=== PATIENT | female | born 1965 | race Caucasian/White ===

== ENCOUNTER 2017-06-19 09:37 | Outpatient (CLI) | payer OTHER ==
--- NOTE | 2017-06-28 21:40 | EKG ---
Test Reason : Blood Pressure : / mmHG Vent. Rate : 062 BPM Atrial Rate : 062 BPM P-R Int : 132 ms QRS Dur : 092 ms QT Int : 432 ms P-R-T Axes : 033 039 001 degrees QTc Int : 438 ms Normal sinus rhythm Normal ECG No previous ECGs available Confirmed by CHRISTIANO JOHNSON (2) on 06/28/2017 9:40:34 PM Referred By: VINCE Confirmed By:CHRISTIANO JOHNSON
== END 2017-06-19 09:38 | disposition home or self-care (01) ==
LOC: LABBT 09:37
PROVIDERS: ATTEND Specialist
DX: Z01.818 Encounter for other preprocedural examination (principal); K80.00 Calculus of gallbladder with acute cholecystitis without obstruction
CPT/HCPCS: 93005; 93010

== ENCOUNTER 2017-10-03 15:24 | Outpatient (CLI) | payer OTHER | END 2017-10-03 15:25 | disposition home or self-care (01) | LOC: DTY/OP 15:24 | PROVIDERS: ATTEND Specialist | DX: Z01.818 Encounter for other preprocedural examination (principal); E66.01 Morbid (severe) obesity due to excess calories | CPT/HCPCS: 97802 ==

== ENCOUNTER 2017-11-06 16:30 | Inpatient (IN) | payer OTHER ==
--- NOTE | 2017-11-06 11:07 | HP ---
HISTORY OF PRESENT ILLNESS: Shonda Scott is a 52-year-old female who I saw in June 2017 for symptomatic gallstones, undergoing laparoscopic video cholecystectomy and adjustable band port, a djustment volume check of 2 mL, aspirated 0.5 to 3-4 mL, leaving 1-1.5 mL. She had intolerable reflu x at that time. Patient has since decided to have her adjustable band removed and proceed with lapar oscopic sleeve gastrectomy. She understands the risks of infection, bleeding, visceral injury, conve rsion to open procedure, risk of leakage, bleeding, reoperation and consents. Last colonoscopy was i n 2009. She is a retired [employer]. She has attended our seminar, seen our psychologist a nd is felt to be a good candidate. She has seen our dietitian regarded perioperative changes stage a fter conversion from a laparoscopic adjustable band to a sleeve. Patient lives in [place]. Her prim van buren care physician is Dr. Amaury Yates. She had her adjustable band placed in [place] in 2006. She weighed 240 pounds prior to band placemen ; when I saw her for gallbladder problems, she was 201 pounds; and on visit today in the office, she was 216 pounds, 39 BMI. ALLERGIES: LEVAQUIN. SOCIAL HISTORY: Tobacco: None. Alcohol: None. The patient is . She is retired. PAST SURGICAL HISTORY: Laparoscopic adjustable band in 2006, hysterectomy in 2006, bilateral salping o-oophorectomy, ear surgery in 1970 and 2016, bladder suspension, laparoscopic band by Dr. 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 Melanoma excision in 2001, bladder suspension in 2009. REVIEW OF SYSTEMS: [place] noncontributory. The patient has seen Dr. Rowley and felt to be a good candidate for bariatric surgery. Preoperative l aboratories have been obtained and are in good alignment with iron slightly low at 29 (50-170 normal) , cholesterol 214 (desirable less than 200), triglycerides 85, thyroid function test is normal. Obdulia min D low at 14, normal should be greater than 30 and she is undergoing replacement. H. pylori is ne gative. Vitamin B1 normal at 74. Folate is slightly low at 5.9, normal 7-31. Vitamin B 12 of 493. COMORBIDITIES: Hypertension, gastroesophageal reflux disease related to her band resolved after band adjustment. PHYSICAL EXAMINATION: VITAL SIGNS: Height 5 feet 2 inches, 216 pounds, 39 BMI. [place] body weight 125. Blood pressure 137 /61, pulse 81, 98.8 degrees. HEENT: Unremarkable. LUNGS: Clear to auscultation. CARDIAC: Regular rate and rhythm without murmur or gallop. ABDOMEN: Soft, obese, nontender. Band port in place. EXTREMITIES: Unremarkable. ASSESSMENT AND PLAN: Morbid obesity, comorbidities of hypertension and reflux related to her band re solving after band adjustment. She did not have reflux prior to placement of the band. She understa nds the risks and benefits as outlined above and consents.
[2017-11-08] MEDS ORDERED: Heparin 5,000 UNITS/ML VIAL ONE (06:14)
[2017-11-08] MEDS ORDERED: Ketorolac Tromethamine 30 MG/ML VIAL ONE ×2 (06:14→13:19)
[2017-11-08] MEDS ORDERED: Scopolamine 1.5 mg/72 hour Patch ONE (06:14)
[2017-11-08] MEDS ORDERED: cefOXitin 2 GM in Sodium Chloride 0.9% 100 ML IVPB SCH (06:30)
[2017-11-08] MEDS ORDERED: Bupivacaine HCl 0.5%/Epinephrine 1:200,000/PF 30 ml Vial ONE (06:43)
[2017-11-08] MEDS ORDERED: Promethazine HCl 25 MG/ML VIAL ONE (07:19)
[2017-11-08] MEDS ORDERED: Midazolam HCl 2 mg/2 ml Vial ONE (07:19)
[2017-11-08] MEDS ORDERED: Fentanyl 250 MCG/5 ML VIAL ONE (07:19)
[2017-11-08] MEDS ORDERED: Bupivacaine/Epinephrine 0.25% 30 ML VIAL ONE (07:42)
--- NOTE | 2017-11-08 09:17 | ADD-HP ---
ADDENDUM HISTORY OF PRESENT ILLNESS: Ms. Shonda Scott is a 52-year-old female initially seen on 10/03, presented initially on 06/13/2017 for symptomatic gallbladder disease with a history of placem ent of laparoscopic adjustable gastric band. The patient is followed by Dr. Amaury Yates. The baljit ent underwent laparoscopic cholecystectomy in 05/2017 for symptomatic gallstones. She subsequently a ttended our bariatric seminar. She desires to have her laparoscopic adjustable band removed and proc eed with laparoscopic sleeve gastrectomy. She has attended our bariatric seminar, met with our dieti jimena and seen by our psychologist and thought to be a good candidate for further bariatric surgery. The patient is retired [employer]. She has committed perioperative followup and diligent fo od choices to ensure good results. She did not have problems with reflux prior to placement of her b and and since deflation of her band, her reflux symptoms have resolved. Initially she was seen, 216 pounds, 39 BMI and today she is 215 pounds, 39 BMI, 5 foot 2 inches. COMORBIDITIES: Hypertension, reflux related to her band, resolved after band deflation. TOBACCO: None. ALCOHOL: None. SOCIAL HISTORY: Patient is . She is retired. ALLERGIES: LEVAQUIN. She had her band placed in [place] in 2006, weighing 240 pounds prior to band placement. When I saw her for gallbladder problems, she was 201 pounds on visit date and previous visit in office in October, she was 216 pounds, 39 BMI. She has seen Dr. Rowley, psychologist and felt to be a good candidate. LABORATORY DATA: Preoperative labs reveal a slightly low iron, cholesterol 214, triglycerides 85. T hyroid function tests are normal. Vitamin D low at 14. She has been on vitamin D replacement protoc . H. pylori was negative. PHYSICAL EXAMINATION: GENERAL: 215 pounds, 136/65, 62 heart rate, 99 degrees, 39 BMI. [place] body weight 125 pounds. HEENT: Unremarkable. NEUROLOGIC: Intact. EXTREMITIES: No ankle edema, no venous stasis changes. LUNGS: Clear to auscultation. CARDIAC: Regular rate and rhythm without murmur or gallop. ABDOMEN: Soft, obese, nontender. Band in place. ASSESSMENT AND PLAN: Morbid obesity, unsuccessful weight loss for laparoscopic adjustable band, mahendra res conversion to sleeve gastrectomy. Plan is to removal of the band and conversion to sleeve gastre ctomy. Risk of infection, bleeding, reoperation, leakage, readmission open operation was discussed. Questions answered.
[2017-11-08] MEDS ORDERED: PHENYLEPHRINE-NS 100 MCG/ML 10 ML SYRINGE ONE ×3 (09:37→11:20)
[2017-11-08] MEDS ORDERED: SUGAMMADEX SODIUM 200 MG/2 ML VIAL ONE (09:58)
[2017-11-08] MEDS ORDERED: Ondansetron HCl/PF 4 MG/2 ML Vial IVP PRN ×2 (10:59→11:17)
[2017-11-08] MEDS ORDERED: Morphine 4 MG/ML VIAL SLOW IVP PRN ×2 (10:59)
[2017-11-08] MEDS ORDERED: diphenhydrAMINE 50 MG/ML VIAL IVP PRN (10:59)
[2017-11-08] MEDS ORDERED: Dextrose 50% Abboject 50 ML SYRINGE SLOW IVP PRN (10:59)
[2017-11-08] MEDS ORDERED: hydrALAZINE 20 MG/ML VIAL SLOW IVP PRN (10:59)
[2017-11-08] MEDS ORDERED: Hydrocodone-Acetamin 15 ML UDCUP PO PRN (10:59)
[2017-11-08] MEDS ORDERED: Dextrose 5% in Water 1,000 ML IV PRN (10:59)
[2017-11-08] MEDS ORDERED: Morphine Sulfate 2 MG/ML SYRINGE SLOW IVP PRN (11:17)
[2017-11-08] MEDS ORDERED: Promethazine HCl 25 MG/ML VIAL SLOW IVP PRN (11:17)
[2017-11-08] MEDS ORDERED: Ondansetron HCl/PF 4 MG/2 ML Vial ONE (11:20)
[2017-11-08] MEDS ORDERED: Dexamethasone 20 MG/5 ML VIAL ONE (11:20)
[2017-11-08] MEDS ORDERED: ePHEDrine/0.9% NaCl/PF SYRINGE 50 mg/10 ml ONE (11:20)
[2017-11-08] MEDS ORDERED: Calcium Chloride 1 GM/10 ML Abboject SYRINGE ONE (11:20)
[2017-11-08] MEDS ORDERED: Lidocaine 1% PF 5 ML VIAL ONE (11:20)
[2017-11-08] MEDS ORDERED: Glycopyrrolate 0.2 MG/ML 5 ML SYRINGE ONE (11:20)
[2017-11-08] MEDS ORDERED: PROPOFOL 200 MG/20 ML VIAL ONE (11:20)
[2017-11-08] MEDS ORDERED: Fentanyl 100 MCG/2 ML VIAL ONE (11:42)
--- NOTE | 2017-11-08 15:06 | OP ---
DATE OF PROCEDURE: 11/08/2017 PREOPERATIVE DIAGNOSES: 1. Unsuccessful, undesired laparoscopic adjustable band. 2. Postop morbid obesity, 5 foot 2 inches, 216 pounds, 39 BMI. 3. Elevated cholesterol. 4. Hypertension. POSTOPERATIVE DIAGNOSES: 1. Unsuccessful, undesired laparoscopic adjustable band. 2. Postop morbid obesity, 5 foot 2 inches, 216 pounds, 39 BMI. 3. Elevated cholesterol. 4. Hypertension. 5. Hiatal hernia. PROCEDURE: Laparoscopic removal of laparoscopic adjustable band and port. Laparoscopic hiatal herni a repair, laparoscopic sleeve gastrectomy using a 36 Mozamb[place] bougie, staple line within 4 cm of pyloru s, completion upper endoscopy, no evidence of leak. PROCEDURE: The patient taken to the operating room where under general anesthesia in supine position , her abdomen was prepared with ChloraPrep, draped in routine fashion. Local anesthetic 0.5% Marcain e with epinephrine 60 mL mixed with 2% Xylocaine, 20 mL mixture used. Local anesthetic infiltrated i nto skin and subcutaneous tissue about each port site. Supraumbilical incision made. Pneumoperitone um to 15 obtained. A Veress needle placed with a 5 port and laparoscope inserted. Mozambican port place d under laparoscopic visualization. Bilateral far lateral subcostal incision made and a [address] Bilateral midclavicular upper abdominal incisions made and a 15 port placed on the patient's left and a 12 port on the right. Subxiphoid incision made and the left lobe of the liver taken down. Ad hesions taken down from between the left lobe of the liver, stomach and band, Nathansen liver retract or inserted, reflecting the left lower lid of liver anteriorly. The band was dissected free from its capsule and then the lock reduced and it was removed. Further dissection of the folds of the stomac h were taken down with LigaSure and cold scissors. Hemostasis gained with cautery, LigaSure and clip s. Fundus stomach was mobilized as much as possible carefully. It was folded back posteriorly and c areful dissection required. At this point, a 36 [place]amb[place] bougie taken down and reduced down towards th e pylorus along the lesser curvature, laparoscopically evaluated. Serial fires of gold Endo stapler performed creating a sleeve gastrectomy up towards the fundus, thus stapling was interrupted as the f undus was still folded back posteriorly. Careful dissection of the right crura performed in the left crura performed and the posterior window identified a small hiatal hernia. Fundus reduced from this hiatal hernia into the abdominal cavity and posterior crura approximated with 2 interrupted sutures of 0 Bralon suture using the tie knot. Once this was completed, the crura approximation was very loo se around the esophagus which as mentioned before a [address] Good hemostasis obtained with clips and LigaSure. Once this was confirmed, and the fundus adequately mobilized, completion s leeve gastrectomy performed with gold fires and then blue fires completing the sleeve gastrectomy and removing the stomach from the 15 mm port site left upper quadrant. Staple line hemostasis gained wi th cautery. At this point, the band port was removed along with the remaining tubing which had been transected early on to allow removal of the band. This port was removed and discarded. 0 Vicryl Gra Nee needle used to approximate this deep incision site. Once this was placed, a15 port was replaced and then I returned to the upper head of the table where the endoscope placed per os under direct vis ualization and passed out the esophagus, stomach, visualizing the pylorus, noting the staple li ne to be intact without bleeding. The stomach decompressed. There was no leakage under water testin g. Scope withdrawn decompressing the stomach and esophagus removing it. There were some small polyp s in the stomach. These polyps appeared to be inflammatory. The patient tolerated the procedure wel l. As the scope was removed, good hemostasis was ensured and I turned my attention back to the opera tive field with a new gown and gloves. Abdominal cavity irrigated and irrigant evacuated. Hemostasi s ensured. Francisco sprayed over the staple line of the sleeve gastrectomy and after Hemoclips applied to assure hemostasis. Good hemostasis noted. Nathansen liver retractor removed. Liver was in good condition. All instruments removed. All irrigant and pneumoperitoneum evacuated. All instruments removed and all skin incisions approximated with subdermal 4-0 Monocryl and DermaGlue applied. The p atient tolerated the procedure well.
[2017-11-08] MEDS: Acetaminophen 1,000 MG in Premix Bag 1 BAG IVPB SCH ×2 (16:32→17:50)
[2017-11-08] MEDS: Ketorolac Tromethamine 30 MG/ML VIAL IVP SCH ×2 (16:32→17:49)
[2017-11-08] MEDS: D5 1/2 NS w/20 mEq KCL 1,000 ML IV SCH ×2 (16:32→19:37)
[2017-11-08 17:00] VITALS: BMI 39.5
[2017-11-08] MEDS ORDERED: Enoxaparin Sodium 40 MG/0.4 ML SYRINGE SC SCH (21:00)
[2017-11-09] MEDS: Acetaminophen 1,000 MG in Premix Bag 1 BAG IVPB SCH ×2 (00:11→05:40)
[2017-11-09] MEDS: Ketorolac Tromethamine 30 MG/ML VIAL IVP SCH ×3 (00:12→13:20)
[2017-11-09] MEDS: D5 1/2 NS w/20 mEq KCL 1,000 ML IV SCH ×2 (05:40→13:20)
[2017-11-09 05:55] LABS: #Eosinphils 0.1 thou/uL (0.0-0.7); #Lymphocytes 3.2 thou/uL (1.20-3.40); #Monocytes 0.9 thou/uL (0.11-0.59); #Neutrophils 5.6 thou/uL (1.40-6.50); %Basophils 0.3 % (0.0-1.0); %Eosinophils 0.6 % (0.0-10.0); %Lymphocytes 32.5 % (21.0-51.0); %Monocytes 9.3 % (0.0-10.0); %Neutrophils 57.4 % (42.0-75.0); Hemoglobin 8.7 g/dL (12.0-16.0); Mean Corpuscular HGB CONC 33.3 g/dL (32.0-36.0); Mean Corpuscular Hemoglobin 25.6 pg (27.0-31.0); Mean Corpuscular Volume 76.9 fl (81.0-99.0); Mean Platelet Volume 7.4 fL (7.4-10.4); Platelet Count 263 thou/uL (130-400); White Blood Cell (WBC) Count 9.7 thou/uL (4.8-10.8)
[2017-11-09 06:17] LABS: Anion Gap 6 mmol/L (10-20); BUN (Urea Nitrogen) 5 mg/dL (9.8-20.1); Calc. Creatinine Clearance 151 mL/min (70-130); Calcium 8.5 mg/dL (7.8-10.44); Carbon Dioxide 26 mmol/L (22-29); Chloride 109 mmol/L (98-107); Estimated GFR-MDRD Greater than 90; Glucose 125 mg/dL (70-105); Potassium 3.3 mmol/L (3.5-5.1); Sodium 138 mmol/L (136-145)
[2017-11-09] MEDS ORDERED: Pantoprazole 40 MG VIAL IVP SCH (09:00)
[2017-11-09 12:02] LABS: #Basophils 0.1 thou/uL (0.0-0.2); #Eosinphils 0.2 thou/uL (0.0-0.7); #Lymphocytes 2.5 thou/uL (1.20-3.40); #Monocytes 0.9 thou/uL (0.11-0.59); #Neutrophils 8.2 thou/uL (1.40-6.50); %Eosinophils 1.3 % (0.0-10.0); %Lymphocytes 21.4 % (21.0-51.0); %Monocytes 7.5 % (0.0-10.0); %Neutrophils 68.8 % (42.0-75.0); Hemoglobin 9.4 g/dL (12.0-16.0); Mean Corpuscular HGB CONC 32.3 g/dL (32.0-36.0); Mean Corpuscular Hemoglobin 25.2 pg (27.0-31.0); Mean Corpuscular Volume 77.8 fl (81.0-99.0); Mean Platelet Volume 7.6 fL (7.4-10.4); Platelet Count 269 thou/uL (130-400); RBC Distribution Width 15.1 % (11.5-14.5); Red Blood Cell (RBC) Count 3.72 mill/uL (4.20-5.40); White Blood Cell (WBC) Count 11.9 thou/uL (4.8-10.8)
[2017-11-09 12:11] VITALS: BP 136/79; TEMP 97.8
--- NOTE | 2017-11-09 20:39 | PRG ---
DATE OF SERVICE: 11/09/2017 SUBJECTIVE: Ms. Scott is doing well today. She tolerated liquids last night. Swallow study w as not performed. She has not had any nausea or vomiting. She is tolerating liquids well today. Anabela marcnao has minimal abdominal pain. Hemoglobin this morning was 8.7. Followup hemoglobin 11:00 a.m. 9.4. She is ambulating, doing well. OBJECTIVE: ABDOMEN: Soft. LUNGS: Clear to auscultation. CARDIAC: Regular rate and rhythm without murmur or gallop. IMPRESSION AND PLAN: Overall, the patient is doing well. She will be discharged home today. Follow up in my office in 1-2 weeks. She will advance her bariatric liquids as tolerated.
--- NOTE | 2017-11-10 04:29 | DIS ---
DISCHARGE DIAGNOSES: 1. Unsuccessful laparoscopic adjustable band, undesired with associated reflux resolved after deflat ion of the band. 2. Morbid obesity, 216 pounds, 39 BMI. 3. Elevated cholesterol. 4. Hypertension. 5. Hiatal hernia. PROCEDURES THIS HOSPITALIZATION: Laparoscopic removal of gastric band and port, laparoscopic repair of hiatal hernia, laparoscopic sleeve gastrectomy, 36 Croatian bougie. Clips applied to the staple susanne e, completion upper endoscopy, no swallow study postoperatively. Discharge hemoglobin 9.4. Follow up in my office in 2-3 weeks. Bariatric liquids diet advancement p er bariatric protocol. DISCHARGE MEDICATIONS: Prilosec, Lortab elixir if needed, Ultram if needed, Tylenol [id number] as able. HOSPITAL SUMMARY: The patient underwent the above-mentioned procedure. There was some scarring in h er hiatus and redundant stomach and a small hiatal hernia requiring hiatal hernia repair and reductio n of the fundus and completion sleeve gastrectomy. Postoperatively, she did remarkably well without nausea or vomiting. She had very little pain. She will most likely take Tylenol [id number] fo r any discomfort. She will follow up in my office in 2-3 weeks. Diet and activity as tolerated. Di et advancement per bariatric protocol.
== END 2017-11-09 13:23 | disposition home or self-care (01) | DRG 621 ==
LOC: SURG A 11-08 05:47 → EDSTATUS 11-08 16:30
PROVIDERS: ADMIT Specialist; ATTEND Specialist
PROC: 0DP64CZ Removal of Extraluminal Device from Stomach, Percutaneous Endoscopic Approach (ICD-10-PCS; principal; 2017-11-08)
PROC: 0DB64Z3 Excision of Stomach, Percutaneous Endoscopic Approach, Vertical (ICD-10-PCS; 2017-11-08)
PROC: 0BQT4ZZ Repair Diaphragm, Percutaneous Endoscopic Approach (ICD-10-PCS; 2017-11-08)
DX: E66.01 Morbid (severe) obesity due to excess calories (principal); E78.00 Pure hypercholesterolemia, unspecified; I10 Essential (primary) hypertension; Z68.39 Body mass index [BMI] 39.0-39.9, adult; K44.9 Diaphragmatic hernia without obstruction or gangrene
CPT/HCPCS: 36415; 80048; 85025; 88307; 88312; 94760; C9113; J0131; J0670; J0694; J1100; J1644; J1650; J1885; J2001; J2250; J2405; J2550; J2704; J3010; J7050

== ENCOUNTER 2021-09-30 12:49 | Outpatient (CLI) | payer OTHER | END 2021-09-30 12:50 | disposition home or self-care (01) | LOC: CT 12:49 | PROVIDERS: ATTEND Student in an Organized Health Care Education/Training Program | DX: H71.91 Unspecified cholesteatoma, right ear (principal); Z98.890 Other specified postprocedural states | CPT/HCPCS: 70480 ==